=== PATIENT | female | born 1945 | race Caucasian/White ===

== ENCOUNTER 2022-01-28 07:02 | Day surgery (SDC) | payer OTHER ==
[~2022-01-28] VITALS: Ht 157.5 cm; Wt 84.4 kg
[~2022-01-28 07:02] MED LIST: ACYC1CAP23 PO; ALPR0.5T7 PO; AMIO200T33 PO; AMLO-489 PO; APIX5TAB PO; ATOR40TA52 PO; CLON0.1T PO; DIGO0.12 PO; GABA300C10 PO; HYDR25TA4 PO; METO-158 PO; OMEP20TA PO; PIOG1TAB36 OR; QUET100T47 PO; SERT50TA19 PO; SUCR1TAB PO
[2022-01-28] MEDS ORDERED: diphenhdrAMINE HCL 50 MG/1 ML VL IV ONE (08:15)
[2022-01-28] MEDS ORDERED: LIDOCAINE VISCOUS 2% 15ML UD PO ONE (08:15)
[2022-01-28] MEDS ORDERED: ONDANSETRON HCL 4 MG/2 ML VIAL IV ONE (08:15)
[2022-01-28] MEDS ORDERED: fentaNYL CITRATE 100 MCG/2 ML VL IV ONE (08:15)
[2022-01-28] MEDS ORDERED: MIDAZOLAM HCL 5 MG/ML-1ML VIAL IV ONE (08:15)
[2022-01-28] MEDS ORDERED: MIDAZOLAM HCL 2MG/2ML 2ml VIAL (1mg/ml) ONE (08:29)
== END 2022-01-28 10:29 | disposition home or self-care (01) ==
LOC: CATH 07:02
PROVIDERS: ATTEND Internal Medicine
DX: I48.20 Chronic atrial fibrillation, unspecified (principal); I34.0 Nonrheumatic mitral (valve) insufficiency; G47.30 Sleep apnea, unspecified; Z20.822 Contact with and (suspected) exposure to COVID-19
CPT/HCPCS: 93312; J1200; J2250; J3010; J7030; U0003; 99152; J2405

== ENCOUNTER 2022-05-02 05:21 | Inpatient (IN) | payer OTHER ==
[~2022-05-02] VITALS: Ht 157.5 cm; Wt 82.7 kg
[2022-05-02 06:31] LABS: Basophils # (auto) 0.1 10 ^3/uL (0-0.2); Eosinophils # (auto) 0.1 10 ^3/uL (0-0.8); Neutrophils # (auto) 10.4 10 ^3/uL (1.6-8.6); Red Cell Distribution Width 16.3 % (11.8-14.3)
[2022-05-02 06:34] LABS: Basophils % (auto) 0.4 % (0.0-2.0); Eosinophils % (auto) 0.9 % (0.0-7.0); Hematocrit 26.7 % (36.0-46.0); Hemoglobin 8.9 g/dL (12.2-16.2); Lymphocytes # (auto) 0.8 10 ^3/uL (0.4-5.4); Lymphocytes % (auto) 6.6 % (10.0-50.0); Mean Corpuscular Hemoglobin 27.4 pg (28.0-32.0); Mean Corpuscular Hgb Conc. 33.4 g/dL (32.0-36.0); Monocytes # (auto) 1.3 10 ^3/uL (0-1.3); Neutrophils % (auto) 82.1 % (37.0-80.0); Nucleated Red Blood Cells % 0.2 %; Red Blood Cells 3.26 10^6/uL (4.0-5.20); White Blood Cell 12.7 10^3/uL (4.4-10.8)
[2022-05-02 06:57] LABS: Potassium 3.4 mmol/L (3.5-5.1)
[2022-05-02] MEDS ORDERED: SODIUM CHLORIDE 0.9% 1,000 ML IV ONE ×2 (07:00→21:45)
[2022-05-02 07:04] LABS: Albumin 2.5 g/dL (3.4-5.0); BUN/Creatinine Ratio 23.8; Bilirubin, Total 1.1 mg/dL (0.2-1.0); Calcium 8.8 mg/dL (8.5-10.1); Total Protein 6.1 g/dL (6.4-8.2)
[2022-05-02 07:46] LABS: INR 1.15 (0.9-1.15); Partial Thromboplastin Time 36.5 sec (24.6-33.4)
[2022-05-02] MEDS ORDERED: POTASSIUM EFFERVESENT TAB 25 MEQ PO ONE (08:45)
[2022-05-02] MEDS ORDERED: HYDROcodone-ACET 10/325MG TAB PO ONE (09:45)
[2022-05-02] MEDS ORDERED: AMIODARONE HCL 200 MG TAB PO ONE (10:15)
[2022-05-02] MEDS ORDERED: MIDAZOLAM HCL 2MG/2ML 2ml VIAL (1mg/ml) ONE (11:43)
[2022-05-02] MEDS ORDERED: MIDAZOLAM HCL 2MG/2ML 2ml VIAL (1mg/ml) IV ONE (11:45)
[2022-05-02] MEDS ORDERED: MORPHINE SULFATE INJ 2 MG/ml SYRG IV ONE ×2 (13:45→18:15)
[2022-05-02] MEDS ORDERED: dilTIAZem 25 MG/5 ML VIAL IV ONE (15:45)
[2022-05-02] MEDS ORDERED: dilTIAZem HCL 60 MG TAB PO ONE (17:00)
[2022-05-02] MEDS ORDERED: MAGNESIUM SULFATE 1GM/100ML 100 ML IV ONE (17:15)
[2022-05-02] MEDS ORDERED: HYDROmorphone HCL 2 MG/ML VL/or syr IV ONE (21:00)
[2022-05-02] MEDS ORDERED: ONDANSETRON HCL 4 MG/2 ML VIAL IV ONE (21:00)
[2022-05-02] MEDS ORDERED: dilTIAZem 125mg/125ml BAG KIT 125 ML IV ONE (21:45)
[2022-05-02] MEDS: PANTOPRAZOLE 40 MG/10 ML VIAL INJ IV SCH (22:22)
[2022-05-02] MEDS: MORPHINE SULFATE INJ 2 MG/ml SYRG IV PRN (22:51)
[2022-05-03] MEDS: MORPHINE SULFATE INJ 2 MG/ml SYRG IV PRN ×5 (02:25→18:29)
[2022-05-03] MEDS: ONDANSETRON HCL 4 MG/2 ML VIAL IV PRN ×4 (02:26→20:52)
[2022-05-03 03:15] LABS: Urine Amorphous Crystal MOD /hpf (None Seen); Urine Bacteria FEW /hpf (None Seen); Urine Blood 3+ /uL (Negative); Urine Specific Gravity 1.017 (1.001-1.035); Urine WBC 6 /hpf (0 - 5)
[2022-05-03 07:38] LABS: Basophils # (auto) 0 10 ^3/uL (0-0.2); Basophils % (auto) 0.3 % (0.0-2.0); Eosinophils # (auto) 0.1 10 ^3/uL (0-0.8); Hemoglobin 8.4 g/dL (12.2-16.2); Lymphocytes % (auto) 7.2 % (10.0-50.0); Monocytes # (auto) 1.2 10 ^3/uL (0-1.3); Nucleated Red Blood Cells % 0.1 %
[2022-05-03 07:41] LABS: Eosinophils % (auto) 0.5 % (0.0-7.0); Mean Corpuscular Hemoglobin 27.7 pg (28.0-32.0); Mean Corpuscular Hgb Conc. 33.5 g/dL (32.0-36.0); Mean Corpuscular Volume 82.6 fL (80.0-100.0); Monocytes % (auto) 8.7 % (0.0-12.0); Neutrophils # (auto) 11.6 10 ^3/uL (1.6-8.6); Neutrophils % (auto) 83.3 % (37.0-80.0); Red Blood Cells 3.03 10^6/uL (4.0-5.20); Red Cell Distribution Width 16.4 % (11.8-14.3); White Blood Cell 13.9 10^3/uL (4.4-10.8)
[2022-05-03 07:51] LABS: Potassium 3.1 mmol/L (3.5-5.1)
[2022-05-03 08:01] LABS: Albumin 2.4 g/dL (3.4-5.0); BUN/Creatinine Ratio 12.5; Bilirubin, Total 0.8 mg/dL (0.2-1.0); Calcium 8.1 mg/dL (8.5-10.1); Total Protein 5.9 g/dL (6.4-8.2)
[2022-05-03] MEDS: PANTOPRAZOLE 40 MG/10 ML VIAL INJ IV SCH ×2 (09:56→20:52)
[2022-05-03] MEDS: dilTIAZem HCL 60 MG TAB GT SCH ×2 (12:17→18:28)
[2022-05-03] MEDS ORDERED: DIGOXIN (250MCG/ML) 2 ML AMPULE IV ONE (15:15)
[2022-05-03] MEDS: METOCLOPRAMIDE HCL 5MG/ml INJ 2ml VIAL IV SCH (17:17)
[2022-05-03 23:15] VITALS: BP 135/78
[2022-05-04] VITALS (7 sets, daily range): BP systolic 134–144; BP diastolic 61–81
[2022-05-04] MEDS: dilTIAZem HCL 60 MG TAB GT SCH ×4 (00:15→17:57)
[2022-05-04] MEDS: MORPHINE SULFATE INJ 2 MG/ml SYRG IV PRN ×3 (00:43→06:51)
[2022-05-04] MEDS: NITROGLYCERIN 0.4 MG SL TAB SL PRN ×3 (01:30→03:11)
[2022-05-04] MEDS: METOCLOPRAMIDE HCL 5MG/ml INJ 2ml VIAL IV SCH ×3 (05:44→21:34)
[2022-05-04] MEDS: cefTRIAXone 1GM/50ML D5W 50 ML IV SCH (09:11)
[2022-05-04] MEDS: PANTOPRAZOLE 40 MG/10 ML VIAL INJ IV SCH ×2 (09:34→21:33)
[2022-05-04] MEDS ORDERED: DIGOXIN (250MCG/ML) 2 ML AMPULE IV SCH (10:00)
[2022-05-04] MEDS: HYDROmorphone HCL 2 MG/ML VL/or syr IV PRN ×2 (12:18→17:50)
[2022-05-04] MEDS: ONDANSETRON HCL 4 MG/2 ML VIAL IV PRN (12:30)
[2022-05-04 14:45] LABS: Basophils # (auto) 0.1 10 ^3/uL (0-0.2); Eosinophils # (auto) 0 10 ^3/uL (0-0.8); Hemoglobin 8.9 g/dL (12.2-16.2); Monocytes # (auto) 1.5 10 ^3/uL (0-1.3)
[2022-05-04 14:47] LABS: Basophils % (auto) 0.5 % (0.0-2.0); Eosinophils % (auto) 0.1 % (0.0-7.0); Hematocrit 27.8 % (36.0-46.0); Lymphocytes # (auto) 1.1 10 ^3/uL (0.4-5.4); Lymphocytes % (auto) 5.8 % (10.0-50.0); Mean Corpuscular Hemoglobin 26.3 pg (28.0-32.0); Mean Corpuscular Volume 82.1 fL (80.0-100.0); Neutrophils # (auto) 15.8 10 ^3/uL (1.6-8.6); Neutrophils % (auto) 85.6 % (37.0-80.0); Red Blood Cells 3.38 10^6/uL (4.0-5.20); Red Cell Distribution Width 16.2 % (11.8-14.3); White Blood Cell 18.5 10^3/uL (4.4-10.8)
[2022-05-04 15:19] LABS: Albumin 2.3 g/dL (3.4-5.0); Calcium 8.7 mg/dL (8.5-10.1)
[2022-05-04 15:22] LABS: Potassium 2.6 mmol/L (3.5-5.1)
[2022-05-04 15:24] LABS: BUN/Creatinine Ratio 12.2; Bilirubin, Total 0.7 mg/dL (0.2-1.0); Total Protein 7.1 g/dL (6.4-8.2)
[2022-05-04] MEDS ORDERED: HYDROcodone-ACET 10/325MG TAB PO PRN (15:30)
[2022-05-04] MEDS ORDERED: POTASSIUM CHLORIDE 40 MEQ, LIDOCAINE 1% (LOCAL ANESTH.) 4 ML in SODIUM CHL 0.9% 250 ML IV ONE (15:30)
[2022-05-04] MEDS: HEPARIN SODIUM (PORCINE) 5000 UNITS/ML 1ML VIAL SC SCH (21:34)
[2022-05-05] MEDS: dilTIAZem HCL 60 MG TAB GT SCH ×2 (00:17→05:34)
[2022-05-05 05:15] VITALS: BP 163/88
[2022-05-05] MEDS: METOCLOPRAMIDE HCL 5MG/ml INJ 2ml VIAL IV SCH ×2 (05:33→14:00)
[2022-05-05 06:10] LABS: Basophils # (auto) 0.1 10 ^3/uL (0-0.2); Basophils % (auto) 0.5 % (0.0-2.0); Eosinophils # (auto) 0 10 ^3/uL (0-0.8); Eosinophils % (auto) 0.3 % (0.0-7.0); Hematocrit 27.7 % (36.0-46.0); Lymphocytes # (auto) 0.8 10 ^3/uL (0.4-5.4); Lymphocytes % (auto) 6.1 % (10.0-50.0); Mean Corpuscular Hemoglobin 26.8 pg (28.0-32.0); Mean Corpuscular Hgb Conc. 32.7 g/dL (32.0-36.0); Mean Corpuscular Volume 81.8 fL (80.0-100.0); Monocytes # (auto) 1.2 10 ^3/uL (0-1.3); Monocytes % (auto) 9.4 % (0.0-12.0); Neutrophils # (auto) 11.1 10 ^3/uL (1.6-8.6); Neutrophils % (auto) 83.7 % (37.0-80.0); Red Blood Cells 3.38 10^6/uL (4.0-5.20); Red Cell Distribution Width 16.3 % (11.8-14.3); White Blood Cell 13.2 10^3/uL (4.4-10.8)
[2022-05-05 06:20] LABS: Potassium 3.7 mmol/L (3.5-5.1)
[2022-05-05 06:27] LABS: Albumin 2.4 g/dL (3.4-5.0); BUN/Creatinine Ratio 16.7; Bilirubin, Total 0.6 mg/dL (0.2-1.0); Calcium 9.1 mg/dL (8.5-10.1); Total Protein 6.4 g/dL (6.4-8.2)
[2022-05-05 08:00] VITALS: BP 163/88
[2022-05-05 08:54] VITALS: BP 149/81
[2022-05-05] MEDS: cefTRIAXone 1GM/50ML D5W 50 ML IV SCH (09:57)
[2022-05-05] MEDS: PANTOPRAZOLE 40 MG/10 ML VIAL INJ IV SCH (09:58)
[2022-05-05] MEDS: HEPARIN SODIUM (PORCINE) 5000 UNITS/ML 1ML VIAL SC SCH (09:58)
[2022-05-05 13:06] VITALS: BP 163/88
[2022-05-05 13:14] VITALS: BP 165/84
== END 2022-05-05 14:00 | disposition home health service (06) | DRG 378 ==
LOC: EDBD 05:21 → ER 05:21 → TELE 21:59 → TELE-EAST 05-04 02:03
PROVIDERS: ADMIT Internal Medicine; ATTEND Internal Medicine
DX: K62.5 Hemorrhage of anus and rectum (principal); E87.1 Hypo-osmolality and hyponatremia; I48.20 Chronic atrial fibrillation, unspecified; M48.55XA Collapsed vertebra, not elsewhere classified, thoracolumbar region, initial encounter for fracture; K55.9 Vascular disorder of intestine, unspecified; D75.839 Thrombocytosis, unspecified; D72.829 Elevated white blood cell count, unspecified; E78.5 Hyperlipidemia, unspecified; E86.0 Dehydration; E87.6 Hypokalemia; W18.39XA Other fall on same level, initial encounter; E66.9 Obesity, unspecified; Z20.822 Contact with and (suspected) exposure to COVID-19; I11.0 Hypertensive heart disease with heart failure; M19.90 Unspecified osteoarthritis, unspecified site; I50.9 Heart failure, unspecified; Z79.01 Long term (current) use of anticoagulants; Z79.899 Other long term (current) drug therapy; Z90.49 Acquired absence of other specified parts of digestive tract; Y93.89 Activity, other specified; Y92.098 Other place in other non-institutional residence as the place of occurrence of the external cause; Y99.8 Other external cause status; Z68.33 Body mass index [BMI] 33.0-33.9, adult
CPT/HCPCS: 36415; 71045; 71111; 71250; 73562; 74175; 76705; 80053; 81001; 83735; 83880; 84484; 85025; 85610; 85730; 86850; 86900; 86901; 93005; 93306; 96361; 96365; 96375; 96376; 99291; C9113; G0378; J0696; J2001; J2250; J2405

== ENCOUNTER 2023-01-09 17:27 | Inpatient (IN) | payer OTHER ==
[~2023-01-09] VITALS: Ht 157.5 cm; Wt 74.2 kg
[~2023-01-09 17:27] MED LIST changes: -ACYC1CAP23 PO; +ACYC200C22 PO; -AMLO-489 PO; +AMLO1TAB22 PO; -APIX5TAB PO; +GABA-1250 PO; -GABA300C10 PO; +SERT-206 PO; -SERT50TA19 PO
[2023-01-09] MEDS ORDERED: ONDANSETRON HCL 4 MG/2 ML VIAL IV ONE (18:00)
[2023-01-09] MEDS ORDERED: HYDROmorphone HCL 2 MG/ML VL/or syr IV ONE (18:00)
[2023-01-09 18:46] LABS: Basophils # (auto) 0.1 10 ^3/uL (0-0.2); Basophils % (auto) 0.5 % (0.0-2.0); Eosinophils # (auto) 0.2 10 ^3/uL (0-0.8); Eosinophils % (auto) 1.1 % (0.0-7.0); Hematocrit 31.7 % (36.0-46.0); Hemoglobin 10.8 g/dL (12.2-16.2); Lymphocytes # (auto) 1.5 10 ^3/uL (0.4-5.4); Mean Corpuscular Hemoglobin 27.9 pg (28.0-32.0); Mean Corpuscular Hgb Conc. 34.1 g/dL (32.0-36.0); Mean Corpuscular Volume 81.7 fL (80.0-100.0); Monocytes % (auto) 11.6 % (0.0-12.0); Neutrophils # (auto) 13.1 10 ^3/uL (1.6-8.6); Neutrophils % (auto) 77.8 % (37.0-80.0); Red Blood Cells 3.88 10^6/uL (4.0-5.20); Red Cell Distribution Width 16.3 % (11.8-14.3); White Blood Cell 16.9 10^3/uL (4.4-10.8)
[2023-01-09 19:01] LABS: INR 1.05 (0.9-1.15); Partial Thromboplastin Time 33.7 sec (24.6-33.4)
[2023-01-09 19:10] LABS: Albumin 3.6 g/dL (3.4-5.0); Potassium 4.1 mmol/L (3.5-5.1)
[2023-01-09] MEDS ORDERED: ceFAZolin 1GM/50ML 50 ML IV ONE (19:15)
[2023-01-09 19:16] LABS: BUN/Creatinine Ratio 26.8 (10.0-20.0); Bilirubin, Total 0.7 mg/dL (0.2-1.0); Total Protein 6.8 g/dL (6.4-8.2)
[2023-01-09] MEDS ORDERED: SODIUM CHL 3% 500 ML IV ONE (19:30)
[2023-01-09] MEDS ORDERED: ETOMIDATE (2MG/ML) 20ML VIAL IV ONE (20:15)
[2023-01-09 20:41] LABS: Urine Bacteria FEW /hpf (None Seen); Urine Blood 1+ /uL (Negative); Urine Hyaline Cast FEW /lpf (0 - 2); Urine Specific Gravity 1.007 (1.001-1.035); Urine WBC 1 /hpf (0 - 5)
[2023-01-09] MEDS ORDERED: MORPHINE SULFATE INJ 2 MG/ml SYRG IV PRN (21:45)
[2023-01-09] MEDS ORDERED: SODIUM CHLORIDE 0.9% 1,000 ML IV ONE (21:45)
[2023-01-09 22:07] VITALS: BP 112/72
[2023-01-09] MEDS: IPRATROPIUM BROM 0.5 MG/2.5ML INH SOL NEB SCH (22:44)
[2023-01-09] MEDS: ALBUTEROL SULF 2.5 MG/0.5ML(0.5%) NEB SOLN NEB SCH (22:44)
[2023-01-10] VITALS (21 sets, daily range): BP systolic 105–140; BP diastolic 62–89
[2023-01-10] MEDS: MORPHINE SULFATE INJ 2 MG/ml SYRG IV PRN ×2 (05:09→10:21)
[2023-01-10 06:02] LABS: Basophils # (auto) 0 10 ^3/uL (0-0.2); Hemoglobin 9.8 g/dL (12.2-16.2); Mean Corpuscular Hemoglobin 27.7 pg (28.0-32.0); Monocytes # (auto) 1.7 10 ^3/uL (0-1.3); Nucleated Red Blood Cells % 0.1 %; Red Cell Distribution Width 16.3 % (11.8-14.3)
[2023-01-10 06:04] LABS: Basophils % (auto) 0.2 % (0.0-2.0); Eosinophils # (auto) 0.2 10 ^3/uL (0-0.8); Eosinophils % (auto) 1.7 % (0.0-7.0); Hematocrit 29.2 % (36.0-46.0); Lymphocytes % (auto) 7.6 % (10.0-50.0); Mean Corpuscular Hgb Conc. 33.7 g/dL (32.0-36.0); Mean Corpuscular Volume 82.2 fL (80.0-100.0); Monocytes % (auto) 12.1 % (0.0-12.0); Neutrophils # (auto) 10.7 10 ^3/uL (1.6-8.6); Neutrophils % (auto) 78.4 % (37.0-80.0); Red Blood Cells 3.55 10^6/uL (4.0-5.20); White Blood Cell 13.7 10^3/uL (4.4-10.8)
[2023-01-10 06:12] LABS: Albumin 3.1 g/dL (3.4-5.0); Calcium 8.3 mg/dL (8.5-10.1); Potassium 3.4 mmol/L (3.5-5.1)
[2023-01-10] MEDS: ALBUTEROL SULF 2.5 MG/0.5ML(0.5%) NEB SOLN NEB SCH ×3 (06:16→18:17)
[2023-01-10] MEDS: IPRATROPIUM BROM 0.5 MG/2.5ML INH SOL NEB SCH ×3 (06:16→18:17)
[2023-01-10 06:18] LABS: BUN/Creatinine Ratio 32.9 (10.0-20.0); Bilirubin, Total 0.8 mg/dL (0.2-1.0); Total Protein 6.3 g/dL (6.4-8.2)
[2023-01-10 08:05] LABS: BUN/Creatinine Ratio 32.4 (10.0-20.0); Potassium 3.3 mmol/L (3.5-5.1)
[2023-01-10] MEDS ORDERED: POTASSIUM CHL 20MEQ/100ML 100 ML IV SCH ×2 (08:30→09:30)
[2023-01-10] MEDS ORDERED: POTASSIUM CHL 20 Meq TABLET PO ONE (09:30)
[2023-01-10] MEDS ORDERED: DIGOXIN 0.125 MG TAB PO SCH (10:00)
[2023-01-10] MEDS ORDERED: METOPROLOL SUCCINATE XL 50 MG TAB PO SCH (10:00)
[2023-01-10] MEDS: FUROSEMIDE 40 MG/4 ML VIAL IV SCH ×2 (10:20→18:44)
[2023-01-10] MEDS: cefTRIAXone 1GM/50ML D5W 50 ML IV SCH (11:07)
[2023-01-10] MEDS ORDERED: DexAMETHasone SOD PHOS 4 MG/1ML SDV INJ ONE (11:10)
[2023-01-10] MEDS ORDERED: BUPIVACAINE W/ EPINEPH 0.25% INJ 50ML MDV ONE (11:10)
[2023-01-10] MEDS ORDERED: DIGOXIN (250MCG/ML) 2 ML AMPULE IV ONE (11:30)
[2023-01-10 11:31] LABS: Potassium 3.6 mmol/L (3.5-5.1)
[2023-01-10 11:35] LABS: BUN/Creatinine Ratio 28.4 (10.0-20.0); Calcium 8.3 mg/dL (8.5-10.1)
[2023-01-10] MEDS ORDERED: BUPIVACAINE 0.25% INJ 50ML VIAL ONE (12:11)
[2023-01-10] MEDS ORDERED: KETOROLAC TROMETH 30 MG/ML 1ML VIAL ONE (12:19)
[2023-01-10] MEDS ORDERED: GLYCOPYRROLATE 0.2 MG/ML 1ML VIAL ONE (12:19)
[2023-01-10] MEDS ORDERED: DexAMETHasone SOD PHOS 10MG/1ML VIAL INJ ONE (12:19)
[2023-01-10] MEDS ORDERED: LIDOCAINE 1% INJ PF 5ML AMP ONE (12:19)
[2023-01-10] MEDS ORDERED: ONDANSETRON HCL 4 MG/2 ML VIAL ONE (12:19)
[2023-01-10] MEDS ORDERED: PROPOFOL 10 MG/ML 20 ML IV ONE ×2 (12:19→13:04)
[2023-01-10] MEDS ORDERED: SODIUM CHLORIDE LOCK 10 ML ONE (12:48)
[2023-01-10] MEDS ORDERED: PHENYLEPHRINE HCL 10 MG/ML VL ONE (12:48)
[2023-01-10] MEDS ORDERED: VANCOMYCIN HCL 1000 MG VL ONE (13:22)
[2023-01-10] MEDS ORDERED: fentaNYL CITRATE 100 MCG/2 ML VL IV PRN (14:15)
[2023-01-10] MEDS ORDERED: LABETALOL HCL 5 MG/ML 4ML SYRINGE IV PRN (14:15)
[2023-01-10] MEDS ORDERED: ePHEDrine SULFATE 50 MG/ML AMP IV PRN (14:15)
[2023-01-10] MEDS ORDERED: ONDANSETRON HCL 4 MG/2 ML VIAL IV PRN (14:15)
[2023-01-10] MEDS ORDERED: hydrALAZINE HCL 20 MG/ML VL IV PRN (14:15)
[2023-01-10] MEDS ORDERED: FLUMAZENIL 0.1 MG/ML INJ 10ML MDV IV PRN (14:15)
[2023-01-10] MEDS ORDERED: NALOXONE HCL 0.4 MG/ML VIAL IV PRN (14:15)
[2023-01-10] MEDS: HYDROmorphone HCL 2 MG/ML VL/or syr IV PRN ×3 (14:23→15:04)
[2023-01-10] MEDS ORDERED: CYCLOBENZAPRINE HCL 10 MG TAB PO ONE (14:45)
[2023-01-10] MEDS: ONDANSETRON HCL 4 MG/2 ML VIAL IV PRN (18:44)
[2023-01-10] MEDS: OXYCODONE W/ ACETAMINOPHEN 5/325MG TABLET PO PRN (18:45)
[2023-01-11] VITALS (21 sets, daily range): BP systolic 114–179; BP diastolic 60–118
[2023-01-11] MEDS: IPRATROPIUM BROM 0.5 MG/2.5ML INH SOL NEB SCH ×5 (00:07→23:54)
[2023-01-11] MEDS: ALBUTEROL SULF 2.5 MG/0.5ML(0.5%) NEB SOLN NEB SCH ×5 (00:07→23:54)
[2023-01-11] MEDS: MORPHINE SULFATE INJ 2 MG/ml SYRG IV PRN ×2 (00:54→16:50)
[2023-01-11] MEDS ORDERED: AMIODARONE HCL 200 MG TAB PO ONE (03:45)
[2023-01-11 05:18] LABS: Basophils # (auto) 0 10 ^3/uL (0-0.2); Eosinophils # (auto) 0 10 ^3/uL (0-0.8); Hemoglobin 10.7 g/dL (12.2-16.2); Lymphocytes # (auto) 0.5 10 ^3/uL (0.4-5.4); Monocytes # (auto) 1.2 10 ^3/uL (0-1.3)
[2023-01-11 05:19] LABS: Albumin 2.9 g/dL (3.4-5.0); Calcium 8.3 mg/dL (8.5-10.1); Potassium 3.1 mmol/L (3.5-5.1)
[2023-01-11 05:22] LABS: BUN/Creatinine Ratio 23.8 (10.0-20.0); Bilirubin, Total 0.6 mg/dL (0.2-1.0)
[2023-01-11 05:23] LABS: Basophils % (auto) 0.1 % (0.0-2.0); Hematocrit 32.1 % (36.0-46.0); Lymphocytes % (auto) 3.6 % (10.0-50.0); Mean Corpuscular Hemoglobin 27.8 pg (28.0-32.0); Mean Corpuscular Hgb Conc. 33.4 g/dL (32.0-36.0); Mean Corpuscular Volume 83.2 fL (80.0-100.0); Monocytes % (auto) 8.8 % (0.0-12.0); Neutrophils % (auto) 87.5 % (37.0-80.0); Red Blood Cells 3.86 10^6/uL (4.0-5.20); Red Cell Distribution Width 16.5 % (11.8-14.3); White Blood Cell 13.7 10^3/uL (4.4-10.8)
[2023-01-11] MEDS: FUROSEMIDE 40 MG/4 ML VIAL IV SCH ×2 (06:47→17:56)
[2023-01-11] MEDS ORDERED: AMIODARONE HCL 150 MG in D5W 5% 100 ML IV ONE (07:45)
[2023-01-11] MEDS: POTASSIUM CHL 20MEQ/100ML 100 ML IV SCH ×2 (08:57→13:37)
[2023-01-11] MEDS: AMIODARONE HCL 200 MG TAB PO SCH ×2 (08:57→23:51)
[2023-01-11] MEDS: METOPROLOL SUCCINATE XL 50 MG TAB PO SCH ×2 (08:57→23:51)
[2023-01-11] MEDS: OXYCODONE W/ ACETAMINOPHEN 5/325MG TABLET PO PRN ×2 (09:07→20:49)
[2023-01-11] MEDS: ONDANSETRON HCL 4 MG/2 ML VIAL IV PRN (15:13)
[2023-01-11] MEDS: cefTRIAXone 1GM/50ML D5W 50 ML IV SCH (15:14)
[2023-01-11] MEDS ORDERED: AZITHROMYCIN 500MG/ 250ML 250 ML IV ONE (17:00)
[2023-01-11] MEDS: QUEtiapine FUMARATE 100 MG TAB PO SCH (23:51)
[2023-01-12] VITALS (19 sets, daily range): BP systolic 107–151; BP diastolic 62–86
[2023-01-12] MEDS: NITROGLYCERIN 0.4 MG SL TAB SL PRN ×2 (01:13→01:25)
[2023-01-12] MEDS: MORPHINE SULFATE INJ 2 MG/ml SYRG IV PRN ×4 (01:14→22:26)
[2023-01-12] MEDS: OXYCODONE W/ ACETAMINOPHEN 5/325MG TABLET PO PRN ×3 (03:30→20:19)
[2023-01-12] MEDS: IPRATROPIUM BROM 0.5 MG/2.5ML INH SOL NEB SCH ×4 (06:44→23:48)
[2023-01-12] MEDS: ALBUTEROL SULF 2.5 MG/0.5ML(0.5%) NEB SOLN NEB SCH ×4 (06:44→23:48)
[2023-01-12] MEDS: FUROSEMIDE 40 MG/4 ML VIAL IV SCH ×2 (07:53→15:55)
[2023-01-12] MEDS: cefTRIAXone 1GM/50ML D5W 50 ML IV SCH (08:10)
[2023-01-12] MEDS: METOPROLOL SUCCINATE XL 50 MG TAB PO SCH ×2 (08:11→22:16)
[2023-01-12] MEDS: AMIODARONE HCL 200 MG TAB PO SCH ×2 (08:11→22:16)
[2023-01-12] MEDS: ONDANSETRON HCL 4 MG/2 ML VIAL IV PRN ×2 (09:11→22:25)
[2023-01-12] MEDS: cloNIDine HCL 0.1 MG TAB PO PRN (09:12)
[2023-01-12 12:55] LABS: Basophils # (auto) 0.1 10 ^3/uL (0-0.2); Eosinophils # (auto) 0.1 10 ^3/uL (0-0.8); Hemoglobin 11.5 g/dL (12.2-16.2); Lymphocytes # (auto) 1.3 10 ^3/uL (0.4-5.4); Mean Corpuscular Volume 83.9 fL (80.0-100.0); Neutrophils # (auto) 14.5 10 ^3/uL (1.6-8.6)
[2023-01-12 12:56] LABS: Basophils % (auto) 0.3 % (0.0-2.0); Eosinophils % (auto) 0.4 % (0.0-7.0); Lymphocytes % (auto) 7.6 % (10.0-50.0); Mean Corpuscular Hemoglobin 27.7 pg (28.0-32.0); Monocytes # (auto) 1.4 10 ^3/uL (0-1.3); Monocytes % (auto) 8.2 % (0.0-12.0); Neutrophils % (auto) 83.5 % (37.0-80.0); Red Blood Cells 4.17 10^6/uL (4.0-5.20); Red Cell Distribution Width 16.8 % (11.8-14.3); White Blood Cell 17.4 10^3/uL (4.4-10.8)
[2023-01-12 13:31] LABS: Albumin 2.9 g/dL (3.4-5.0); Calcium 8.7 mg/dL (8.5-10.1)
[2023-01-12 13:37] LABS: BUN/Creatinine Ratio 14.5 (10.0-20.0); Bilirubin, Total 0.6 mg/dL (0.2-1.0)
[2023-01-12 13:44] LABS: Potassium 2.7 mmol/L (3.5-5.1)
[2023-01-12] MEDS ORDERED: POTASSIUM EFFERVESENT TAB 25 MEQ PO ONE ×2 (14:15→14:30)
[2023-01-12] MEDS ORDERED: PANTOPRAZOLE 40 MG/10 ML VIAL INJ IV ONE (14:15)
[2023-01-12] MEDS ORDERED: POTASSIUM CHLORIDE 40 MEQ, LIDOCAINE 1% (LOCAL ANESTH.) 4 ML in SODIUM CHL 0.9% 250 ML IV ONE (14:15)
[2023-01-12] MEDS: LORazepam 0.5 MG TAB PO PRN (15:55)
[2023-01-12] MEDS ORDERED: AZITHROMYCIN 500MG/ 250ML 250 ML IV SCH (17:00)
[2023-01-12] MEDS: Ensure HIGH Protein Chocolate 8oz Bottle PO SCH (18:14)
[2023-01-12] MEDS: QUEtiapine FUMARATE 100 MG TAB PO SCH (22:16)
[2023-01-13] VITALS (21 sets, daily range): BP systolic 102–173; BP diastolic 74–107
[2023-01-13] MEDS: OXYCODONE W/ ACETAMINOPHEN 5/325MG TABLET PO PRN ×2 (03:52→13:25)
[2023-01-13 05:53] LABS: Basophils # (auto) 0 10 ^3/uL (0-0.2); Eosinophils # (auto) 0.1 10 ^3/uL (0-0.8); Hematocrit 31.5 % (36.0-46.0); Lymphocytes # (auto) 1.5 10 ^3/uL (0.4-5.4); Mean Corpuscular Hemoglobin 27.9 pg (28.0-32.0); Monocytes # (auto) 1.2 10 ^3/uL (0-1.3)
[2023-01-13 05:55] LABS: Basophils % (auto) 0.1 % (0.0-2.0); Hemoglobin 10.7 g/dL (12.2-16.2); Lymphocytes % (auto) 14.6 % (10.0-50.0); Monocytes % (auto) 11.1 % (0.0-12.0); Neutrophils # (auto) 7.6 10 ^3/uL (1.6-8.6); Neutrophils % (auto) 73.2 % (37.0-80.0); Red Blood Cells 3.84 10^6/uL (4.0-5.20); White Blood Cell 10.4 10^3/uL (4.4-10.8)
[2023-01-13] MEDS: FUROSEMIDE 40 MG/4 ML VIAL IV SCH (06:00)
[2023-01-13] MEDS: ALBUTEROL SULF 2.5 MG/0.5ML(0.5%) NEB SOLN NEB SCH (06:10)
[2023-01-13] MEDS: IPRATROPIUM BROM 0.5 MG/2.5ML INH SOL NEB SCH ×4 (06:10→23:38)
[2023-01-13 06:14] LABS: Calcium 8.5 mg/dL (8.5-10.1); Potassium 3.2 mmol/L (3.5-5.1)
[2023-01-13 06:19] LABS: Albumin 2.7 g/dL (3.4-5.0); BUN/Creatinine Ratio 20.9 (10.0-20.0); Bilirubin, Total 0.7 mg/dL (0.2-1.0); Total Protein 6.3 g/dL (6.4-8.2)
[2023-01-13] MEDS: cloNIDine HCL 0.1 MG TAB PO PRN ×2 (06:36→16:22)
[2023-01-13] MEDS: cefTRIAXone 1GM/50ML D5W 50 ML IV SCH (07:49)
[2023-01-13] MEDS: AMIODARONE HCL 200 MG TAB PO SCH ×2 (07:50→21:53)
[2023-01-13] MEDS: SERTRALINE HCL 50 MG TAB PO SCH (07:50)
[2023-01-13] MEDS: METOPROLOL SUCCINATE XL 50 MG TAB PO SCH ×2 (07:50→21:53)
[2023-01-13] MEDS: Ensure HIGH Protein Chocolate 8oz Bottle PO SCH ×3 (08:00→18:00)
[2023-01-13] MEDS: MORPHINE SULFATE INJ 2 MG/ml SYRG IV PRN ×2 (09:17→16:12)
[2023-01-13] MEDS: LORazepam 0.5 MG TAB PO PRN ×2 (09:17→16:21)
[2023-01-13] MEDS ORDERED: PANTOPRAZOLE 40 MG/10 ML VIAL INJ IV SCH (10:00)
[2023-01-13] MEDS ORDERED: POTASSIUM EFFERVESENT TAB 25 MEQ PO ONE (10:30)
[2023-01-13] MEDS ORDERED: MORPHINE SULF 15mg ER tab PO ONE (10:30)
[2023-01-13] MEDS: MORPHINE SULF 15mg ER tab PO SCH (21:52)
[2023-01-13] MEDS: DOXYCYCLINE 100 MG TAB/CAP PO SCH (21:53)
[2023-01-14] VITALS (24 sets, daily range): BP systolic 118–174; BP diastolic 55–104
[2023-01-14] MEDS: MORPHINE SULFATE INJ 2 MG/ml SYRG IV PRN ×3 (01:13→13:45)
[2023-01-14] MEDS: cloNIDine HCL 0.1 MG TAB PO PRN (03:09)
[2023-01-14 06:20] LABS: Basophils # (auto) 0.1 10 ^3/uL (0-0.2); Basophils % (auto) 0.6 % (0.0-2.0); Eosinophils # (auto) 0.3 10 ^3/uL (0-0.8); Mean Corpuscular Volume 82.9 fL (80.0-100.0); Monocytes # (auto) 1.3 10 ^3/uL (0-1.3)
[2023-01-14 06:23] LABS: Eosinophils % (auto) 2.8 % (0.0-7.0); Hematocrit 33.8 % (36.0-46.0); Hemoglobin 11.5 g/dL (12.2-16.2); Lymphocytes # (auto) 1.7 10 ^3/uL (0.4-5.4); Lymphocytes % (auto) 15.2 % (10.0-50.0); Mean Corpuscular Hemoglobin 28.2 pg (28.0-32.0); Monocytes % (auto) 11.9 % (0.0-12.0); Neutrophils # (auto) 7.6 10 ^3/uL (1.6-8.6); Neutrophils % (auto) 69.5 % (37.0-80.0); Red Blood Cells 4.07 10^6/uL (4.0-5.20); Red Cell Distribution Width 16.8 % (11.8-14.3)
[2023-01-14] MEDS: OXYCODONE W/ ACETAMINOPHEN 5/325MG TABLET PO PRN ×3 (06:27→18:42)
[2023-01-14 06:36] LABS: Potassium 3.1 mmol/L (3.5-5.1)
[2023-01-14 06:40] LABS: BUN/Creatinine Ratio 20.5 (10.0-20.0); Magnesium 1.8 mg/dL (1.6-2.6)
[2023-01-14] MEDS: IPRATROPIUM BROM 0.5 MG/2.5ML INH SOL NEB SCH ×3 (06:44→18:23)
[2023-01-14] MEDS: Ensure HIGH Protein Chocolate 8oz Bottle PO SCH ×3 (08:00→18:00)
[2023-01-14] MEDS: AMIODARONE HCL 200 MG TAB PO SCH ×2 (08:43→21:06)
[2023-01-14] MEDS: cefTRIAXone 1GM/50ML D5W 50 ML IV SCH (08:43)
[2023-01-14] MEDS: FUROSEMIDE 40 MG TAB PO SCH (08:44)
[2023-01-14] MEDS: POTASSIUM EFFERVESENT TAB 25 MEQ PO SCH (08:44)
[2023-01-14] MEDS: DOXYCYCLINE 100 MG TAB/CAP PO SCH ×2 (08:45→21:05)
[2023-01-14] MEDS: METOPROLOL SUCCINATE XL 50 MG TAB PO SCH ×2 (08:45→21:06)
[2023-01-14] MEDS: MORPHINE SULF 15mg ER tab PO SCH ×2 (08:45→21:05)
[2023-01-14] MEDS: PANTOPRAZOLE 40 MG TAB PO SCH (08:45)
[2023-01-14] MEDS: SERTRALINE HCL 50 MG TAB PO SCH (08:46)
[2023-01-14] MEDS ORDERED: MORPHINE SULFATE INJ 2 MG/ml SYRG IV ONE (09:00)
[2023-01-14] MEDS ORDERED: AZITHROMYCIN 250 MG TAB PO SCH (10:00)
[2023-01-14] MEDS: ONDANSETRON HCL 4 MG/2 ML VIAL IV PRN (10:06)
[2023-01-14] MEDS ORDERED: THROAT LOZENGES(CEPASTAT) MT PRN (16:30)
[2023-01-15] VITALS (8 sets, daily range): BP systolic 133–170; BP diastolic 77–108
[2023-01-15] MEDS: IPRATROPIUM BROM 0.5 MG/2.5ML INH SOL NEB SCH ×4 (00:10→18:00)
[2023-01-15] MEDS: MORPHINE SULFATE INJ 2 MG/ml SYRG IV PRN ×2 (02:45→20:15)
[2023-01-15] MEDS: OXYCODONE W/ ACETAMINOPHEN 5/325MG TABLET PO PRN ×2 (04:54→14:20)
[2023-01-15 06:20] LABS: Basophils # (auto) 0.1 10 ^3/uL (0-0.2); Eosinophils # (auto) 0.3 10 ^3/uL (0-0.8); Hematocrit 34.5 % (36.0-46.0); Hemoglobin 11.6 g/dL (12.2-16.2); Monocytes # (auto) 1.5 10 ^3/uL (0-1.3); Nucleated Red Blood Cells % 0.1 %
[2023-01-15 06:22] LABS: Basophils % (auto) 0.6 % (0.0-2.0); Eosinophils % (auto) 2.5 % (0.0-7.0); Lymphocytes # (auto) 1.8 10 ^3/uL (0.4-5.4); Lymphocytes % (auto) 13.6 % (10.0-50.0); Mean Corpuscular Hemoglobin 27.6 pg (28.0-32.0); Mean Corpuscular Hgb Conc. 33.6 g/dL (32.0-36.0); Mean Corpuscular Volume 82.1 fL (80.0-100.0); Monocytes % (auto) 11.5 % (0.0-12.0); Neutrophils # (auto) 9.6 10 ^3/uL (1.6-8.6); Neutrophils % (auto) 71.8 % (37.0-80.0); Red Cell Distribution Width 16.3 % (11.8-14.3); White Blood Cell 13.4 10^3/uL (4.4-10.8)
[2023-01-15] MEDS: cloNIDine HCL 0.1 MG TAB PO PRN ×2 (06:33)
[2023-01-15 06:35] LABS: BUN/Creatinine Ratio 23.8 (10.0-20.0); Calcium 8.9 mg/dL (8.5-10.1)
[2023-01-15 06:54] LABS: Potassium 2.9 mmol/L (3.5-5.1)
[2023-01-15] MEDS ORDERED: POTASSIUM CHL 20 Meq TABLET PO ONE (07:00)
[2023-01-15] MEDS: AMIODARONE HCL 200 MG TAB PO SCH ×2 (10:06→21:59)
[2023-01-15] MEDS: PANTOPRAZOLE 40 MG TAB PO SCH (10:06)
[2023-01-15] MEDS: SERTRALINE HCL 50 MG TAB PO SCH (10:07)
[2023-01-15] MEDS: DOXYCYCLINE 100 MG TAB/CAP PO SCH ×2 (10:07→21:58)
[2023-01-15] MEDS: METOPROLOL SUCCINATE XL 50 MG TAB PO SCH ×2 (10:07→21:58)
[2023-01-15] MEDS: MORPHINE SULF 15mg ER tab PO SCH ×2 (10:08→21:58)
[2023-01-15] MEDS: cefTRIAXone 1GM/50ML D5W 50 ML IV SCH (10:09)
[2023-01-15] MEDS: Ensure HIGH Protein Chocolate 8oz Bottle PO SCH ×3 (10:11→18:00)
[2023-01-15] MEDS: FUROSEMIDE 40 MG TAB PO SCH (10:20)
[2023-01-15] MEDS: POTASSIUM EFFERVESENT TAB 25 MEQ PO SCH (10:25)
[2023-01-15] MEDS ORDERED: POTASSIUM EFFERVESENT TAB 25 MEQ PO ONE (13:15)
[2023-01-16] MEDS: OXYCODONE W/ ACETAMINOPHEN 5/325MG TABLET PO PRN ×2 (01:24→16:01)
[2023-01-16 05:00] VITALS: BP 155/88
[2023-01-16] MEDS: MORPHINE SULFATE INJ 2 MG/ml SYRG IV PRN (06:03)
[2023-01-16 06:31] LABS: Basophils # (auto) 0.1 10 ^3/uL (0-0.2); Hemoglobin 11.7 g/dL (12.2-16.2)
[2023-01-16 06:35] LABS: Basophils % (auto) 0.6 % (0.0-2.0); Eosinophils # (auto) 0.5 10 ^3/uL (0-0.8); Eosinophils % (auto) 3.6 % (0.0-7.0); Hematocrit 34.5 % (36.0-46.0); Lymphocytes % (auto) 16.1 % (10.0-50.0); Mean Corpuscular Hgb Conc. 33.9 g/dL (32.0-36.0); Mean Corpuscular Volume 82.5 fL (80.0-100.0); Monocytes # (auto) 1.5 10 ^3/uL (0-1.3); Monocytes % (auto) 11.7 % (0.0-12.0); Neutrophils # (auto) 8.6 10 ^3/uL (1.6-8.6); Red Blood Cells 4.19 10^6/uL (4.0-5.20); Red Cell Distribution Width 16.6 % (11.8-14.3); White Blood Cell 12.7 10^3/uL (4.4-10.8)
[2023-01-16] MEDS: IPRATROPIUM BROM 0.5 MG/2.5ML INH SOL NEB SCH ×3 (06:36→13:35)
[2023-01-16 06:39] LABS: BUN/Creatinine Ratio 29.8 (10.0-20.0); Calcium 9.3 mg/dL (8.5-10.1); Potassium 4.3 mmol/L (3.5-5.1)
[2023-01-16 08:00] VITALS: BP 158/101
[2023-01-16] MEDS: Ensure HIGH Protein Chocolate 8oz Bottle PO SCH ×3 (08:00→18:00)
[2023-01-16] MEDS: SERTRALINE HCL 50 MG TAB PO SCH (09:49)
[2023-01-16] MEDS: AMIODARONE HCL 200 MG TAB PO SCH (09:50)
[2023-01-16] MEDS: PANTOPRAZOLE 40 MG TAB PO SCH (09:50)
[2023-01-16] MEDS: DOXYCYCLINE 100 MG TAB/CAP PO SCH (09:50)
[2023-01-16] MEDS: MORPHINE SULF 15mg ER tab PO SCH (09:51)
[2023-01-16] MEDS: METOPROLOL SUCCINATE XL 50 MG TAB PO SCH (09:51)
[2023-01-16] MEDS: cefTRIAXone 1GM/50ML D5W 50 ML IV SCH (09:52)
[2023-01-16] MEDS: POTASSIUM EFFERVESENT TAB 25 MEQ PO SCH (09:52)
[2023-01-16 12:00] VITALS: BP 145/81
[2023-01-16 14:19] VITALS: BP 158/101
[2023-01-16 16:00] VITALS: BP 149/98
== END 2023-01-16 18:30 | DRG 492 ==
LOC: ER 17:27 → EDBD 17:27 → TELE 21:42 → ICU IN DOU 01-10 00:31 → DOU IN ICU 01-10 00:33 → TELE-WESTW 01-15 02:11
PROVIDERS: ADMIT Internal Medicine; ATTEND Internal Medicine
PROC: 0SSFXZZ Reposition Right Ankle Joint, External Approach (ICD-10-PCS; 2023-01-09)
PROC: 0QSJ04Z Reposition Right Fibula with Internal Fixation Device, Open Approach (ICD-10-PCS; principal; 2023-01-11)
PROC: BQ1GZZZ Fluoroscopy of Right Ankle (ICD-10-PCS; 2023-01-11)
DX: S82.851B Displaced trimalleolar fracture of right lower leg, initial encounter for open fracture type I or II (principal); I50.31 Acute diastolic (congestive) heart failure; J96.20 Acute and chronic respiratory failure, unspecified whether with hypoxia or hypercapnia; E87.1 Hypo-osmolality and hyponatremia; I48.20 Chronic atrial fibrillation, unspecified; M48.56XA Collapsed vertebra, not elsewhere classified, lumbar region, initial encounter for fracture; E87.0 Hyperosmolality and hypernatremia; D72.829 Elevated white blood cell count, unspecified; I11.0 Hypertensive heart disease with heart failure; J44.9 Chronic obstructive pulmonary disease, unspecified; Z99.81 Dependence on supplemental oxygen; D64.9 Anemia, unspecified; E87.6 Hypokalemia; F32.A Depression, unspecified; I27.20 Pulmonary hypertension, unspecified; M47.814 Spondylosis without myelopathy or radiculopathy, thoracic region; E78.5 Hyperlipidemia, unspecified; G89.29 Other chronic pain; M54.50 Low back pain, unspecified; I08.1 Rheumatic disorders of both mitral and tricuspid valves; W18.39XA Other fall on same level, initial encounter; Y93.89 Activity, other specified; Y92.098 Other place in other non-institutional residence as the place of occurrence of the external cause; Y99.8 Other external cause status
CPT/HCPCS: 36415; 71045; 72070; 72100; 73600; 76000; 80048; 80053; 81001; 83735; 84443; 85025; 85610; 85730; 86850; 86900; 86901; 87081; 93005; 93306; 94640; 96365; 96375; 97110; 97116; 97163; 97530; C9113; G0378; J0690; J0696; J1100; J1885; J2001; J2405; J2704; J3480; J3490; J7060

== ENCOUNTER 2023-01-26 17:19 | Inpatient (IN) | payer OTHER ==
[~2023-01-26] VITALS: Ht 157.5 cm; Wt 68.2 kg
[~2023-01-26 17:19] MED LIST changes: -ATOR40TA52 PO; -GABA-1250 PO; -PIOG1TAB36 OR
[2023-01-26] MEDS ORDERED: dilTIAZem 25 MG/5 ML VIAL IV ONE ×3 (18:30→19:15)
[2023-01-26 18:43] LABS: Hemoglobin 11.7 g/dL (12.2-16.2)
[2023-01-26 18:45] LABS: Basophils # (auto) 0.1 10 ^3/uL (0-0.2); Basophils % (auto) 0.5 % (0.0-2.0); Eosinophils # (auto) 0 10 ^3/uL (0-0.8); Lymphocytes # (auto) 1.1 10 ^3/uL (0.4-5.4); Lymphocytes % (auto) 5.8 % (10.0-50.0); Mean Corpuscular Hemoglobin 27.7 pg (28.0-32.0); Mean Corpuscular Hgb Conc. 33.5 g/dL (32.0-36.0); Mean Corpuscular Volume 82.8 fL (80.0-100.0); Monocytes # (auto) 1.2 10 ^3/uL (0-1.3); Monocytes % (auto) 6.3 % (0.0-12.0); Neutrophils # (auto) 16.8 10 ^3/uL (1.6-8.6); Neutrophils % (auto) 87.4 % (37.0-80.0); Red Blood Cells 4.23 10^6/uL (4.0-5.20); Red Cell Distribution Width 16.6 % (11.8-14.3); White Blood Cell 19.3 10^3/uL (4.4-10.8)
[2023-01-26 19:02] LABS: Albumin 2.8 g/dL (3.4-5.0); Anion Gap 18 (5-15); Blood Alcohol < 3.0 mg/dL (0-5); Blood Urea Nitrogen 12 mg/dL (7-18); Calcium 8.3 mg/dL (8.5-10.1); Carbon Dioxide 21 mmol/L (21-32); Chloride 86 mmol/L (98-107); Glucose 105 mg/dL (74-106); Magnesium 1.4 mg/dL (1.6-2.6); Potassium 3.5 mmol/L (3.5-5.1); Sodium 125 mmol/L (136-145)
[2023-01-26 19:06] LABS: Alanine Aminotransferase 17 U/L (13-56); Alkaline Phosphatase 73 U/L (45-117); Aspartate Aminotransferase 24 U/L (15-37); BUN/Creatinine Ratio 27.9 (10.0-20.0); Bilirubin, Total 1.5 mg/dL (0.2-1.0); GFR African American 183 mL/min; GFR Non-African American 151 mL/min; Total Protein 6.3 g/dL (6.4-8.2)
[2023-01-26 19:09] LABS: INR 1.58 (0.9-1.15); Partial Thromboplastin Time 35.3 sec (24.6-33.4)
[2023-01-26] MEDS ORDERED: ASPirin 81 mg TAB PO ONE (19:15)
[2023-01-26] MEDS ORDERED: SODIUM CHLORIDE 0.9% 1,000 ML IV ONE (20:00)
[2023-01-26] MEDS ORDERED: VANCOMYCIN 1GM/250ML 250 ML IV ONE (21:15)
[2023-01-26] MEDS ORDERED: PIPERACILLIN-TAZOB 3.375GM 100 ML IV ONE (21:15)
[2023-01-26] MEDS ORDERED: DOCUSATE SOD 100 MG CAP PO PRN (21:45)
[2023-01-26] MEDS: SODIUM CHLORIDE 0.9% 1,000 ML IV SCH (21:45)
[2023-01-26] MEDS ORDERED: ONDANSETRON HCL 4 MG/2 ML VIAL IV PRN (21:45)
[2023-01-26] MEDS ORDERED: ACETAMINOPHEN 325 MG TAB PO PRN (21:45)
[2023-01-26] MEDS ORDERED: HYDROcodone-ACET 5/325MG TAB PO PRN (21:45)
[2023-01-26] MEDS ORDERED: NITROGLYCERIN 0.4 MG SL TAB SL PRN (21:45)
[2023-01-26] MEDS ORDERED: MORPHINE SULFATE INJ 2 MG/ml SYRG IV PRN (21:45)
[2023-01-26] MEDS ORDERED: MORP30TA5 PO (21:51)
[2023-01-26] MEDS ORDERED: OXYC-962 PO (21:51)
[2023-01-26] MEDS ORDERED: AMIODARONE HCL 150 MG in D5W 5% 100 ML IV ONE (22:00)
[2023-01-26] MEDS ORDERED: AMIODARONE 450mg/250ml AE 250 ML IV SCH (22:15)
[2023-01-26] MEDS ORDERED: AMIODARONE HCL (50 MG/ ML) 3 ML VIAL IV ONE (22:34)
[2023-01-26] MEDS: MORPHINE SULF 30 mg ER tab PO SCH (22:44)
[2023-01-26] MEDS: cloNIDine HCL 0.1 MG TAB PO SCH (22:44)
[2023-01-26] MEDS ORDERED: IOHEXOL 350 MG/ML 100ML IJ ONE (23:28)
[2023-01-27] MEDS: MAGNESIUM SULFATE 1GM/100ML 100 ML IV SCH ×2 (02:42→06:15)
[2023-01-27] MEDS: AMIODARONE 450mg/250ml AE 250 ML IV SCH (04:20)
[2023-01-27] MEDS ORDERED: SODIUM CHLORIDE 1 GM TAB PO ONE (05:45)
[2023-01-27] MEDS ORDERED: MAGNESIUM SULFATE 1GM/100ML 100 ML IV ONE (06:14)
[2023-01-27 07:09] LABS: Basophils # (auto) 0.1 10 ^3/uL (0-0.2); Eosinophils # (auto) 0 10 ^3/uL (0-0.8); Hemoglobin 11.5 g/dL (12.2-16.2); Nucleated Red Blood Cells % 0.1 %
[2023-01-27 07:12] LABS: Basophils % (auto) 0.8 % (0.0-2.0); Eosinophils % (auto) 0.5 % (0.0-7.0); Hematocrit 33.7 % (36.0-46.0); Lymphocytes # (auto) 1.6 10 ^3/uL (0.4-5.4); Lymphocytes % (auto) 15.1 % (10.0-50.0); Mean Corpuscular Hemoglobin 28.8 pg (28.0-32.0); Mean Corpuscular Hgb Conc. 34.2 g/dL (32.0-36.0); Mean Corpuscular Volume 84.3 fL (80.0-100.0); Monocytes # (auto) 1.4 10 ^3/uL (0-1.3); Monocytes % (auto) 13.1 % (0.0-12.0); Neutrophils # (auto) 7.3 10 ^3/uL (1.6-8.6); Neutrophils % (auto) 70.5 % (37.0-80.0); Red Cell Distribution Width 16.2 % (11.8-14.3); White Blood Cell 10.3 10^3/uL (4.4-10.8)
[2023-01-27 07:37] LABS: Albumin 2.6 g/dL (3.4-5.0); BUN/Creatinine Ratio 22.2 (10.0-20.0); Calcium 8.7 mg/dL (8.5-10.1); Magnesium 2.2 mg/dL (1.6-2.6); Total Protein 6.2 g/dL (6.4-8.2)
[2023-01-27 07:45] LABS: Potassium 2.8 mmol/L (3.5-5.1)
[2023-01-27] MEDS ORDERED: cefTRIAXone 1GM/50ML D5W 50 ML IV SCH (09:00)
[2023-01-27] MEDS: PIPERACILLIN-TAZOB 3.375GM 100 ML IV SCH ×3 (09:45→22:46)
[2023-01-27] MEDS: cloNIDine HCL 0.1 MG TAB PO SCH (10:00)
[2023-01-27] MEDS: MORPHINE SULF 30 mg ER tab PO SCH ×2 (10:09→22:04)
[2023-01-27] MEDS: ACYCLOVIR 400 MG TAB PO SCH (10:09)
[2023-01-27] MEDS: ENOXAPARIN SOD 40 MG/0.4 ML SYRINGE SC SCH (10:09)
[2023-01-27] MEDS: METOPROLOL TARTRATE 50 MG TAB PO SCH (10:09)
[2023-01-27] MEDS ORDERED: POTASSIUM CHL 20 Meq TABLET PO ONE (14:30)
[2023-01-27] MEDS ORDERED: LACTULOSE 20Gm/30ML SOLN PO PRN (14:30)
[2023-01-27] MEDS ORDERED: DOCUSATE SOD 100 MG CAP PO ONE (14:30)
[2023-01-27] MEDS: SODIUM CHLORIDE 0.9% 1,000 ML IV SCH (14:33)
[2023-01-27] MEDS: DOCUSATE SOD 100 MG CAP PO SCH (22:04)
[2023-01-28] MEDS: OXYCODONE W/ ACETAMINOPHEN 5/325MG TABLET PO PRN ×2 (00:24→08:43)
[2023-01-28 01:45] LABS: Urine Bacteria NONE SEEN /hpf (None Seen); Urine Blood 2+ /uL (Negative); Urine Specific Gravity 1.008 (1.001-1.035); Urine WBC 1 /hpf (0 - 5)
[2023-01-28 02:01] LABS: Alcohol, Urine < 3.0 mg/dL (0-10); Amphetamine Screen, Urine NEGATIVE (NEGATIVE); Barbiturate Scree,Urine NEGATIVE (NEGATIVE); Benzodiazephine Screen, Urine NEGATIVE (NEGATIVE); Cannabinoid Screen, Urine NEGATIVE (NEGATIVE); Cocaine Screen, Urine NEGATIVE (NEGATIVE); Opiate Scree,Urine POSITIVE (NEGATIVE); Phencyclidine Screen, Urine NEGATIVE (NEGATIVE)
[2023-01-28] MEDS: AMIODARONE 450mg/250ml AE 250 ML IV SCH ×3 (02:10→19:42)
[2023-01-28 06:01] LABS: Basophils # (auto) 0.1 10 ^3/uL (0-0.2); Basophils % (auto) 1.1 % (0.0-2.0); Eosinophils # (auto) 0.2 10 ^3/uL (0-0.8); Eosinophils % (auto) 2.8 % (0.0-7.0); Hematocrit 32.9 % (36.0-46.0); Hemoglobin 11.1 g/dL (12.2-16.2); Lymphocytes # (auto) 1.6 10 ^3/uL (0.4-5.4); Mean Corpuscular Hgb Conc. 33.6 g/dL (32.0-36.0); Mean Corpuscular Volume 83.1 fL (80.0-100.0); Monocytes # (auto) 1.1 10 ^3/uL (0-1.3); Monocytes % (auto) 12.3 % (0.0-12.0); Neutrophils # (auto) 5.7 10 ^3/uL (1.6-8.6); Neutrophils % (auto) 65.8 % (37.0-80.0); Red Blood Cells 3.96 10^6/uL (4.0-5.20); Red Cell Distribution Width 16.1 % (11.8-14.3); White Blood Cell 8.7 10^3/uL (4.4-10.8)
[2023-01-28] MEDS: PIPERACILLIN-TAZOB 3.375GM 100 ML IV SCH ×3 (06:17→23:28)
[2023-01-28 06:22] LABS: Potassium 3.7 mmol/L (3.5-5.1)
[2023-01-28 06:36] LABS: Calcium 8.5 mg/dL (8.5-10.1)
[2023-01-28] MEDS: SODIUM CHLORIDE 0.9% 1,000 ML IV SCH ×2 (07:05→23:28)
[2023-01-28] MEDS: MORPHINE SULF 30 mg ER tab PO SCH ×2 (10:19→23:28)
[2023-01-28] MEDS: DOCUSATE SOD 100 MG CAP PO SCH ×2 (10:19→23:27)
[2023-01-28] MEDS: SERTRALINE HCL 50 MG TAB PO SCH (10:19)
[2023-01-28] MEDS: ACYCLOVIR 400 MG TAB PO SCH (10:19)
[2023-01-28] MEDS: METOPROLOL TARTRATE 50 MG TAB PO SCH (10:20)
[2023-01-28] MEDS: ENOXAPARIN SOD 40 MG/0.4 ML SYRINGE SC SCH (10:21)
[2023-01-28] MEDS: LORazepam 0.5 MG TAB PO PRN (12:14)
[2023-01-28 22:58] VITALS: BP 142/94
[2023-01-29] MEDS: OXYCODONE W/ ACETAMINOPHEN 5/325MG TABLET PO PRN ×2 (02:52→17:37)
[2023-01-29 05:00] VITALS: BP 164/84
[2023-01-29] MEDS: PIPERACILLIN-TAZOB 3.375GM 100 ML IV SCH (05:25)
[2023-01-29 09:00] VITALS: BP 115/70
[2023-01-29] MEDS: ENOXAPARIN SOD 40 MG/0.4 ML SYRINGE SC SCH (09:19)
[2023-01-29] MEDS: DOCUSATE SOD 100 MG CAP PO SCH ×2 (09:19→21:35)
[2023-01-29] MEDS: SERTRALINE HCL 50 MG TAB PO SCH (09:20)
[2023-01-29] MEDS: ACYCLOVIR 400 MG TAB PO SCH (09:20)
[2023-01-29] MEDS: AMIODARONE HCL 200 MG TAB PO SCH ×2 (09:20→21:35)
[2023-01-29] MEDS: MORPHINE SULF 30 mg ER tab PO SCH ×2 (09:21→21:36)
[2023-01-29] MEDS: METOPROLOL TARTRATE 50 MG TAB PO SCH (09:21)
[2023-01-29] MEDS: LORazepam 0.5 MG TAB PO PRN (10:52)
[2023-01-29 12:58] VITALS: BP 145/91
[2023-01-29] MEDS ORDERED: GABA-1250 PO (13:00)
[2023-01-29] MEDS ORDERED: ASPI-543 PO (13:00)
[2023-01-29] MEDS ORDERED: GABA-339 PO (13:00)
[2023-01-29] MEDS ORDERED: LORA-1121 PO (13:00)
[2023-01-29] MEDS ORDERED: FURO40TA4 PO (13:00)
[2023-01-29] MEDS ORDERED: AMLO1TAB22 PO (13:00)
[2023-01-29] MEDS ORDERED: SERT-377 PO (13:00)
[2023-01-29] MEDS ORDERED: DOCUSATE SOD 100 MG CAP PO ONE (14:45)
[2023-01-29] MEDS ORDERED: LACTULOSE 20Gm/30ML SOLN PO ONE (14:45)
[2023-01-29] MEDS: GABAPENTIN 300 MG CAP PO SCH ×2 (15:43→21:36)
[2023-01-29 17:16] VITALS: BP 158/95
[2023-01-29] MEDS: LACTULOSE 20Gm/30ML SOLN PO SCH (17:28)
[2023-01-29 22:00] VITALS: BP 157/93
[2023-01-29 22:30] VITALS: BP 159/103
[2023-01-30] MEDS: LACTULOSE 20Gm/30ML SOLN PO SCH ×3 (00:25→12:00)
[2023-01-30] MEDS: OXYCODONE W/ ACETAMINOPHEN 5/325MG TABLET PO PRN ×2 (04:34→14:06)
[2023-01-30 05:00] VITALS: BP 171/92
[2023-01-30] MEDS: GABAPENTIN 300 MG CAP PO SCH ×3 (05:08→23:53)
[2023-01-30 08:00] VITALS: BP 146/47
[2023-01-30] MEDS: cefTRIAXone 1GM/50ML D5W 50 ML IV SCH (08:56)
[2023-01-30 09:00] VITALS: BP 140/84
[2023-01-30] MEDS: DOCUSATE SOD 100 MG CAP PO SCH (10:10)
[2023-01-30] MEDS: SERTRALINE HCL 50 MG TAB PO SCH (10:10)
[2023-01-30] MEDS: METOPROLOL TARTRATE 50 MG TAB PO SCH (10:11)
[2023-01-30] MEDS: ACYCLOVIR 400 MG TAB PO SCH (10:11)
[2023-01-30] MEDS: ENOXAPARIN SOD 40 MG/0.4 ML SYRINGE SC SCH (10:11)
[2023-01-30] MEDS: MORPHINE SULF 30 mg ER tab PO SCH ×2 (10:11→23:54)
[2023-01-30] MEDS: AMIODARONE HCL 200 MG TAB PO SCH ×2 (10:11→23:53)
[2023-01-30 13:01] VITALS: BP 149/77
[2023-01-30] MEDS ORDERED: MORP1TAB12 PO (13:02)
[2023-01-30] MEDS ORDERED: CEFD300C2 PO (13:02)
[2023-01-30] MEDS ORDERED: AMIO200T13 PO (13:02)
[2023-01-30 16:55] VITALS: BP 157/81
[2023-01-30] MEDS: NITROGLYCERIN 2% OINT 1GM PKG TD SCH ×2 (21:45→23:53)
[2023-01-30 22:00] VITALS: BP 129/73
[2023-01-31] MEDS: NITROGLYCERIN 2% OINT 1GM PKG TD SCH ×5 (01:22→13:42)
[2023-01-31] MEDS: OXYCODONE W/ ACETAMINOPHEN 5/325MG TABLET PO PRN ×2 (02:58→12:37)
[2023-01-31 05:00] VITALS: BP 154/88
[2023-01-31] MEDS: GABAPENTIN 300 MG CAP PO SCH ×2 (06:27→13:41)
[2023-01-31] MEDS: ACYCLOVIR 400 MG TAB PO SCH (09:05)
[2023-01-31] MEDS: cefTRIAXone 1GM/50ML D5W 50 ML IV SCH (09:05)
[2023-01-31] MEDS: ENOXAPARIN SOD 40 MG/0.4 ML SYRINGE SC SCH (09:05)
[2023-01-31] MEDS: MORPHINE SULF 30 mg ER tab PO SCH (09:05)
[2023-01-31] MEDS: METOPROLOL TARTRATE 50 MG TAB PO SCH (09:06)
[2023-01-31] MEDS: SERTRALINE HCL 50 MG TAB PO SCH (09:06)
[2023-01-31] MEDS: AMIODARONE HCL 200 MG TAB PO SCH (09:06)
[2023-01-31 09:19] VITALS: BP 157/84
[2023-01-31 13:00] VITALS: BP 149/86
[2023-01-31 14:15] VITALS: BP 149/86
== END 2023-01-31 15:00 | disposition hospice, home (50) | DRG 871 ==
LOC: ER 17:19 → EDBD 17:19 → TELE 21:51 → TELE-WESTW 01-28 21:51
PROVIDERS: ADMIT Nurse Practitioner Family; ATTEND Internal Medicine
DX: A41.9 Sepsis, unspecified organism (principal); G92.8 Other toxic encephalopathy; I21.A1 Myocardial infarction type 2; E87.1 Hypo-osmolality and hyponatremia; J96.10 Chronic respiratory failure, unspecified whether with hypoxia or hypercapnia; I50.32 Chronic diastolic (congestive) heart failure; N39.0 Urinary tract infection, site not specified; E44.0 Moderate protein-calorie malnutrition; R79.89 Other specified abnormal findings of blood chemistry; F32.A Depression, unspecified; X58.XXXD Exposure to other specified factors, subsequent encounter; E87.6 Hypokalemia; M47.9 Spondylosis, unspecified; I11.0 Hypertensive heart disease with heart failure; I48.91 Unspecified atrial fibrillation; J44.9 Chronic obstructive pulmonary disease, unspecified; E66.9 Obesity, unspecified; Z68.27 Body mass index [BMI] 27.0-27.9, adult; Z74.01 Bed confinement status; Z90.49 Acquired absence of other specified parts of digestive tract; S82.891D Other fracture of right lower leg, subsequent encounter for closed fracture with routine healing
CPT/HCPCS: 36415; 36600; 70450; 71250; 71275; 74176; 80048; 80053; 80307; 80320; 81001; 82010; 82805; 82962; 83605; 83735; 83880; 84484; 85025; 85379; 85610; 85730; 87040; 87086; 93005; 96365; 96375; 96376; 97110; 97116; 97163; 97530; G0378; J0696; J2405; J2543; J7060